=== PATIENT | female | born 1965 | race Caucasian/White ===

== ENCOUNTER 2018-07-15 09:45 | Emergency (ER) | payer OTHER ==
--- NOTE | 2018-07-15 10:50 | ED.PDOC ---
History of Present Illness - General Chief Complaint: GI Problem Stated Complaint: nausea Time Seen by Provider: 07/15/18 10:26 Information Source: patient, RN notes reviewed Additional Information: 52 YEAR OLD PRESENTS WITH ABDOMIAL PAIN FOR SEVERAL WEEKS ALMOST EVERYDAY SHE HAD A [facility] BACK IN SEP 2017 SHE STATES SHE HAS NOT FELT GOOD SINCE THEN INITIALLY SHE ASSUMED IT WAS POST OP PAIN LATER IT STARTED PERSISTING A CONSTANT ACHE IN THE EPIGASTRIUM PAIN IS BROUGHT BY FOOD AND SHE AT TIMES HAS BILIOUS EMESIS SHE HAS LOST WEIGHT IN THE LAST 6 WEEKS SHE HAD NOTICED HER EYES AND URINE ARE LOOKING YELLOW SHE ALSO WOKE UP THIS MORNING WITH FEVER AND COLD SWEATS HERE ON ARRIVAL SHE WAS FEBRILE 100.6 AND TACHYCARDIC 120S - History of Present Illness Abdominal Pain Onset Location: epigastric Pain Radiation: no radiation Quality: moderate Timing/Duration: intermittent Improving Factors: nothing Worsening Factors: eating Associated Symptoms: fever/chills, nausea/vomiting, weakness Review of Systems - Review of Systems Constitutional: States: fever EENTM: States: no symptoms reported Respiratory: States: no symptoms reported Cardiology: States: no symptoms reported Gastrointestinal/Abdominal: States: see HPI Genitourinary: States: no symptoms reported Musculoskeletal: States: no symptoms reported Skin: States: no symptoms reported Neurological: States: no symptoms reported Endocrine: States: no symptoms reported Past Medical History (General) - Patient Medical History Hx Asthma: Yes Hx Cardiac Disorders: No Hx Congestive Heart Failure: No Hx Hypertension: Yes Hx Thyroid Disease: Yes Hx Diabetes: No Surgical History: cholecystectomy, Hysterectomy, other - Social History Hx Tobacco Use: No Family Medical History - Family History Mother Family History: No Known Physical Exam - Physical Exam General Appearance: Alert, Comfortable Eyes, Ears, Nose, Throat Exam: PERRL/EOMI, normal ENT inspection, TMs normal, pharynx normal Neck: non-tender, full range of motion, supple, normal inspection Respiratory: chest non-tender, lungs clear, normal breath sounds Cardiovascular/Chest: normal peripheral pulses, regular rate, rhythm, no edema, no gallop, no murmur Peripheral Pulses: No deficit Gastrointestinal/Abdominal: normal bowel sounds, non tender, soft, no organomegaly Back Exam: normal inspection, no CVA tenderness, no vertebral tenderness Extremity: normal range of motion, non-tender, normal inspection 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-XII nml as tested, no motor/sensory deficits, alert, normal mood/affect, oriented x 3 Skin Exam: normal color Lymphatic: no adenopathy Progress - Results/Orders Results/Orders: Laboratory Tests 07/15/18 07/15/18 07/15/18 10:52 10:53 10:55 WBC 12.8 H RBC 4.45 Hgb 13.3 Hct 39.8 MCV 89.5 MCH 29.8 MCHC 33.3 RDW 13.7 Plt Count 278 MPV 8.3 Absolute Neuts (auto) 11.00 H Absolute Lymphs (auto) 0.60 L Absolute Monos (auto) 1.00 H Absolute Eos (auto) 0.00 Absolute Basos (auto) 0.00 Neutrophils % 86.3 H Lymphocytes % 5.0 L Monocytes % 8.2 Eosinophils % 0.3 L Basophils % 0.2 Sodium 135 Potassium 3.6 Chloride 101 Carbon Dioxide 23 Anion Gap 14.6 BUN 9 Creatinine 0.42 L BUN/Creatinine Ratio 21.4 H Random Glucose 113 H Serum Osmolality 269.6 L Calcium 10.3 H Total Bilirubin 7.6 H* AST 65 H ALT 80 H Alkaline Phosphatase 244 H Serum Total Protein 7.2 Albumin 3.8 Globulin 3.4 Albumin/Globulin Ratio 1.1 Lipase 15 L Urine Color Urine Appearance Urine pH Ur Specific [place] Urine Protein Urine Glucose (UA) Urine Ketones Urine Blood Urine Nitrite Urine Bilirubin Urine Urobilinogen Ur Leukocyte Esterase Urine RBC Urine WBC Ur Epithelial Cells Urine Bacteria 07/15/18 11:36 WBC RBC Hgb Hct MCV MCH MCHC RDW Plt Count MPV Absolute Neuts (auto) Absolute Lymphs (auto) Absolute Monos (auto) Absolute Eos (auto) Absolute Basos (auto) Neutrophils % Lymphocytes % Monocytes % Eosinophils % Basophils % Sodium Potassium Chloride Carbon Dioxide Anion Gap BUN Creatinine BUN/Creatinine Ratio Random Glucose Serum Osmolality Calcium Total Bilirubin AST ALT Alkaline Phosphatase Serum Total Protein Albumin Globulin Albumin/Globulin Ratio Lipase Urine Color Gaby H Urine Appearance Clear Urine pH 7.0 Ur Specific [place] 1.015 Urine Protein 30 Urine Glucose (UA) Negative Urine Ketones 15 H Urine Blood Trace-intact H Urine Nitrite Negative Urine Bilirubin Large Urine Urobilinogen >= 8.0 H Ur Leukocyte Esterase Negative Urine RBC 0-1 Urine WBC 0 Ur Epithelial Cells 1-3 Urine Bacteria 3+ H USS COMMON BILE DUCT APPEARS PROMINENT MEASURING 7.5 MM DISTAL CBD NOT VISUALIZED OBSCURED BY GAS Departure - Departure Clinical Impression: Abdominal pain, Jaundice, Cholangitis Time of Disposition: 14:44 Disposition: Transfer to Hospital Condition: Good Departure Forms: ED Discharge - Pt. Copy, Patient Portal Self Enrollment Referrals: Dayanara Haley NP [Primary Care Provider] - 1-2 Weeks Home Medications: Ambulatory Orders Bisacodyl [Dulcolax] 5 mg PO SOFÍA-OTH-DAY PRN 07/15/18 Losartan Potassium & Hydrochlo [Losartan Potassium/Hydroc 50-12.5 mg] 1 tab PO DAILY 07/15/18 Additional Instructions: PT WANTS TO TRAVEL WITH HER [facility] Transfer to Outside Facility - Transfer Information Accepting Provider:: HOSPITALIST DR MASSEY Accepting Facility: [facility]
[2018-07-15] MEDS ORDERED: HYDROcodone 10MG/APAP 325MG 1 EA TAB PO ONE ×2 (11:09→14:32)
[2018-07-15] MEDS ORDERED: ALUM & MAG HYDROX-SIMETHICONE 30 ML, LIDOCAINE VISCOUS 2% 15 ML PO ONE ×2 (11:10)
[2018-07-15] MEDS ORDERED: LIDOCAINE HCL 2% (MOUTH-THROAT) 15 ML UD ONE (11:13)
[2018-07-15] MEDS ORDERED: ALUM & MAG HYDROX-SIMETHICONE 30 ML UD ONE (11:13)
[2018-07-15] MEDS ORDERED: PIPERACILLIN/TAZOBACTAM 3.375 GM in SODIUM CHLORIDE 0.9% 100ML 100 ML IVPB ONE (12:08)
--- NOTE | 2018-07-15 12:17 | US ---
EXAM DESCRIPTION: Liver sonogram CLINICAL HISTORY: 52 years Female, r/o common bile duct obstr COMPARISON: None. FINDINGS: The liver is homogeneous in texture with no focal liver lesion. No intrahepatic bile duct dilatation. Normal appearance of portal vein with normal color flow toward the liver. Common duct is prominent measuring 7.5 mm in diameter with no intraductal stones seen. The distal duct is obscured by bowel gas. The right kidney measures 9.4 cm in length which is slightly small for an adult. Correlate with renal function tests. Gallbladder is not seen and may be surgically absent. Pancreas, aorta and inferior vena cava are unremarkable. IMPRESSION: Homogeneous texture of the liver with no focal lesion. Prominent common bile duct with surgically absent gallbladder. Electronically signed by: Martínez Mukherjee MD 07/15/2018 12:16 PM [employer]
[2018-07-15] MEDS ORDERED: PIPERACILLIN/TAZOBACTAM 3.375 GM VIAL IVPB ONE (12:22)
[2018-07-15] MEDS ORDERED: SODIUM CHLORIDE 0.9% 100ML 100 ML IVPB ONE (12:22)
[2018-07-15] MEDS ORDERED: PROMETHAZINE TAB (ER DISP) 25 MG TAB PO ONE ×2 (14:31→14:45)
[2018-07-15] MEDS ORDERED: PROMETHAZINE HCL 25 MG TAB ONE (14:43)
[2018-07-15] MEDS ORDERED: PROMETHAZINE HCL 25 MG TAB PO ONE (14:49)
[2018-07-15 15:32] VITALS: BP 138/90; TEMP 98.7; O2SAT 95
== END 2018-07-15 15:32 | disposition short-term general hospital (02) ==
LOC: ER 09:45
DX: K83.09 Other cholangitis (principal); R17 Unspecified jaundice; R10.13 Epigastric pain; Z90.49 Acquired absence of other specified parts of digestive tract; I10 Essential (primary) hypertension; E07.9 Disorder of thyroid, unspecified; J45.909 Unspecified asthma, uncomplicated
CPT/HCPCS: 36415; 76705; 80053; 81001; 83690; 85025; 87040; J2543; J7050; Q0169